=== PATIENT | female | born 1985 | race Caucasian/White ===

== ENCOUNTER 2021-06-02 22:53 | Emergency (ER) | payer BC ==
[2021-06-02 23:17] VITALS: BP 107/61; PULSE 66
--- NOTE | 2021-06-02 23:32 | EDM.PDOC ---
ED HPI GENERAL MEDICAL PROBLEM - General Chief Complaint: Skin Complaint Stated Complaint: HIVES Time Seen by Provider: 06/02/21 23:00 Source of Information: Reports: Patient History Limitations: Reports: No Limitations - History of Present Illness INITIAL COMMENTS - FREE TEXT/NARRATIVE: Patient presents to the ED for itching. She states that she is about 5 days in from starting flagyl for bacterial vaginosis and trichomonas. She has not taken this oral medication but has had trichomonas in the past and was given vaginal gel treatments. She works at a [employer] and did work today and was doing well until this evening when she started itching all over. She thought she had hives so decided to come to the ED. She is not allergic to anything. no new soaps, lotions or dye. no new food. Does not take any medications. Has not had alcohol with the flagyl. She does smoke marijuana and did smoke it just immediately prior to this itching started. Started on her forearms, worked it way up the arms to the upper chest and has itching on the lower legs. Denies any other drug use. Did not take any benadryl due to not having any and not having any money to purchase this. SHe is supposed to be at work, but didn't want to go in due to intching in " inappropriate" places. Denies sleeping anywhere new. Onset: Today, Sudden Location: Reports: Generalized - Related Data Allergies Allergy/AdvReac Type Severity Reaction Status Date / Time No Known Allergies Allergy Verified 06/02/21 23:07 Past Medical History - Past Health History Medical/Surgical History: Denies Medical/Surgical History - Past Surgical History Head Surgeries/Procedures: Reports: None Social & Family History - Tobacco Use Tobacco Use Status *Q: Current Every Day Tobacco User Tobacco Use Within Last Twelve Months: Other (See Below) (marijuana) Years of Tobacco use: 20 Packs/Tins Daily: 2 - Alcohol Use Alcohol Use History: Yes Alcohol Use Frequency: Rarely - Recreational Drug Use Recreational Drug Use: Yes Recreational Drug Type: Reports: Marijuana/Hashish Recreational Drug Use Frequency: Daily ED ROS GENERAL - Review of Systems Review Of Systems: See Below Constitutional: Reports: No Symptoms. Denies: Fever, Chills, Weakness HEENT: Reports: No Symptoms Respiratory: Reports: No Symptoms. Denies: Shortness of Breath, Cough Cardiovascular: Reports: No Symptoms. Denies: Chest Pain, Dyspnea on Exertion Endocrine: Reports: No Symptoms GI/Abdominal: Reports: No Symptoms. Denies: Abdominal Pain, Diarrhea, Nausea, Vomiting : Reports: No Symptoms Musculoskeletal: Reports: No Symptoms Skin: Reports: Pruritis Neurological: Reports: No Symptoms ED EXAM, SKIN/RASH Exam: See Below Exam Limited By: Other (patient alternates from profusely itching herself) General Appearance: Alert, WD/WN, No Apparent Distress Eye Exam: Bilateral Eye: EOMI, Normal Inspection, PERRL Ears: Normal External Exam Nose: Normal Inspection Throat/Mouth: Normal Inspection, Normal Teeth, Normal Voice Head: Atraumatic Respiratory/Chest: No Respiratory Distress, Lungs Clear, Normal Breath Sounds, No Accessory Muscle Use, Chest Non-Tender Cardiovascular: Normal Peripheral Pulses, Regular Rate, Rhythm, No JVD GI/Abdominal: Soft Extremities: Normal Inspection, Normal Range of Motion, Non-Tender Neurological: Alert, Oriented, CN II-XII Intact Psychiatric: Anxious Skin: Other (no actual urticaria seen, however there are significant rdz on her skin from her scratching. no open lesions at this time. No other swellling, hives, bullar etc. no signs of scabies in skin folds, finger webs) Course - Vital Signs Last Recorded V/S: Last Vital Signs Temp 36.7 C 06/02/21 23:03 Pulse 66 06/02/21 23:03 Resp 18 06/02/21 23:03 BP 107/61 06/02/21 23:03 Pulse Ox 98 06/02/21 23:03 - Orders/Labs/Meds Orders: Active Orders 24 hr Category Date Time Status diphenhydrAMINE [Benadryl] Med 06/02/21 23:20 Once 50 mg PO ONETIME ONE methylPREDNISolone Sod Succ [Solu-MEDROL] Med 06/02/21 23:20 Once 125 mg IM ONETIME ONE - Re-Assessments/Exams Free Text/Narrative Re-Assessment/Exam: 06/02/21 23:37 will give the patient solu medrol 125 mg Im and benadryl 50 mg PO. Advised she needs to continue the benadryl every 4-6 hours as needed for itching. No signs of scabies noted. I do not see any hives or airway problems either. Did tell her to stop the flagyl and list this as a possible allergy. Did discuss with her the possibility of something in the marijuana and if it recurs after smoking it again, to think of this as the potential source. Departure - Departure Time of Disposition: 23:41 Disposition: Home, Self-Care 01 Clinical Impression: Pruritic rash - Discharge Information *PRESCRIPTION DRUG MONITORING PROGRAM REVIEWED*: No *COPY OF PRESCRIPTION DRUG MONITORING REPORT IN PATIENT EMY: No Instructions: Pruritus Referrals: Arian Lopez, [employer] [Primary Care Provider] - Forms: ED Department Discharge, ED Return to Work/School Form Additional Instructions: You were given solu medrol ( a steroid ) for possible allergic reaction. You may want to consider Flagyl ( metronidazole) as a cause of this, however you do not have large urticaria from this medication, thus making it less likely. You need to continue to take benadryl 50 mg every 4-6 hours as needed for itching as this may continue for several days. You were given a dose in the ED and this may make you sleepy. You are givena note for no work today. Sepsis Event Note (ED) - Evaluation Sepsis Screening Result: No Definite Risk - Focused Exam Vital Signs: Vital Signs Temp Pulse Resp BP Pulse Ox 06/02/21 23:03 36.7 C 66 18 107/61 98 - My Orders Last 24 Hours: My Active Orders 06/02/21 23:20 diphenhydrAMINE [Benadryl] 50 mg PO ONETIME ONE methylPREDNISolone Sod Succ [Solu-MEDROL] 125 mg IM ONETIME ONE - Assessment/Plan Last 24 Hours: My Active Orders 06/02/21 23:20 diphenhydrAMINE [Benadryl] 50 mg PO ONETIME ONE methylPREDNISolone Sod Succ [Solu-MEDROL] 125 mg IM ONETIME ONE
[2021-06-02] MEDS: methylPREDNISolone Sodium Succinate 125 MG/2 ML SDV IM ONE (23:33)
[2021-06-02] MEDS: diphenhydrAMINE 25 MG Cap PO ONE (23:35)
== END 2021-06-02 23:45 | disposition home or self-care (01) ==
LOC: VM.ED 22:53
DX: L29.9 Pruritus, unspecified (principal); Z72.0 Tobacco use
CPT/HCPCS: 96372; 99282; 99283; A9270-GY; J2930